=== PATIENT | female | born 1960 | race Caucasian/White ===

== ENCOUNTER 2016-12-05 00:32 | Emergency (ER) | payer OTHER ==
[~2016-12-05] VITALS: Ht 160 cm; Wt 63.5 kg
[2016-12-05 00:41] VITALS: BP 106/66
--- NOTE | 2016-12-05 00:47 | NUR ---
Family x 2 came in and stated they wanted to take pt to [facility]. Pt is alert and oriented x 4. Gait steady. PATIENT LEFT WITHOUT BEING SEEN BY DR. Kauffman. NO FURTHER CARE PROVIDED FOR PATIENT.
== END 2016-12-05 00:47 | disposition left against medical advice (07) ==
LOC: MED 00:32
DX: F10.10 Alcohol abuse, uncomplicated (principal); F41.9 Anxiety disorder, unspecified; Z53.21 Procedure and treatment not carried out due to patient leaving prior to being seen by health care provider